=== PATIENT | male | born 1965 | race Two or more races ===

== ENCOUNTER 2018-10-08 07:25 | Day surgery (SDC) | payer BC ==
--- NOTE | 2018-10-03 12:58 | RAD REPORT ---
EXAM DESCRIPTION: RAD - Chest Pa And Lat (2 Views) - 10/03/2018 11:36 am CLINICAL HISTORY: Preop chest, soft tissue mass removal pending COMPARISON: None. TECHNIQUE: PA and lateral views of the chest were obtained. FINDINGS: The lungs are clear. Lung markings are not outside of normal range. Heart size is normal and central vasculature is within normal limits. No pleural effusion or pneumothorax seen. No acute bony finding noted. No aortic abnormality. IMPRESSION: No acute cardiopulmonary process.
--- NOTE | 2018-10-03 15:34 | EKG ---
Test Date: 2018-10-03 Test Time: 11:15:34 Navigation Officer: ANNABELLE MEASUREMENT RESULTS: Intervals: Rate: 56 WI: 154 QRSD: 88 QT: 418 QTc: 403 [place]: P: 32 WI: 154 QRS: 61 T: 50 INTERPRETIVE STATEMENTS: Sinus bradycardia Otherwise normal ECG No previous ECG available for comparison Electronically Signed On 10-03-18 15:33:17 ADVERTISING REP by Kingsley Patiño
[2018-10-08] MEDS ORDERED: Ringers Lactate 1,000 ML IV ONE ×2 (08:06→10:20)
[2018-10-08] MEDS ORDERED: PROPOFOL 200 MG/20 ML VIAL IV ONE ×2 (08:13→10:10)
[2018-10-08] MEDS ORDERED: FENTANYL CITR 100 MCG/2 ML ONE (08:13)
[2018-10-08] MEDS ORDERED: MIDAZOLAM HCL 2 MG/2 ML INJ ONE (08:14)
[2018-10-08] MEDS ORDERED: LIDOCAINE 2% MPF 5 ML VIAL ONE (08:14)
[2018-10-08] MEDS ORDERED: ONDANSETRON 4 MG/2 ML VIAL ONE ×2 (08:16→09:01)
[2018-10-08] MEDS ORDERED: CEFAZOLIN 1GM (PREMIX IV) 1 GM/50 ML BAG ONE (08:51)
[2018-10-08] MEDS ORDERED: KETOROLAC 30 MG/ML INJ ONE (09:16)
--- NOTE | 2018-10-08 09:21 | P.BOP ---
Preoperative diagnosis: right groin (suprapubic ) hyperpimentated ulcerated mass , left thigh mass Postoperative diagnosis: same Primary procedure: 1. Wide excision of R groin hyperpimentated ulcerated subq mass 3x3cm Secondary procedure: 2. Wide excision left thigh subq mass 1.5 x 1.5 cm Estimated blood loss: <10 Anesthesia: General Complications: None Transferred to: Recovery Room Condition: Good
--- NOTE | 2018-10-09 01:38 | DS ---
Date of Discharge: 10/08/2018 Diagnoses: Right groin basal carcinoma, left thigh subcutaneous mass. Home Activity: As tolerated. No heavy lifting. Followup: Follow up in my office in 1 week. Call for appointment [phone]. Keep area dry for 48 ho urs, then may shower. May take shower 2 days from now and replace the dressings with just Neosporin and sterile dressings. Medications: See orders. AI/CONNIE Voice ID: [id number] Report ID: [id number]
--- NOTE | 2018-10-09 01:38 | OP ---
Date of Procedure: 10/08/2018 Surgeon: Andre Irwin MD Diagnosis: Right groin suprapubic hyperpigmented ulcerated mass on the left side mass. Procedures: 1.Wide excision of right groin ulcerated basal cell carcinoma with a subcutaneous induration 3 x 3 c m. 2.Excision of left thigh subcutaneous mass 1.5 x 1.5 cm. Anesthesia: General plus local. Findings: The patient has an ulcerated mass in the right groin and left side. The right groin, Dr. Upton, on frozen section salvage there is a basal carcinoma. On the left side, he still need to wa it for the permanent sections. Ebl: Less than 10 cc. Both masses have margins negative. Indications: This is the case of a male, who comes to us with those 2 problems mentioned above. Hardeep efits, alternatives, and risks of wide excision with frozen section fully explained to the patient, w hich include, not limited to infection, bleeding, damage to adjacent structures, anesthesia complicat ion, recurrence, IA, and even . He also understands this may not relieve any symptoms. He migh t need more than one surgical intervention. He understood, signed a consent. Areas of concern were marked by me and the patient in the holding room. Description Of Procedure: The patient was brought to the operating room, placed in supine position. Anesthesia was done without complication. Suprapubic area and left thigh were prepped and draped in a sterile fashion. Each side was prepped individually with different instruments to avoid cross con tamination. We proceeded to go to the right groin region first. Incision was carried down to subcut aneous tissue since this mass goes into the subcutaneous tissue. Mass was excised and this was close d after irrigation and suction with a 0 chromic and nylon. The pathology in that area shows basal ce ll carcinoma with wide negative margins. Once again, we moved to the left side. In that case, once again, we have different instruments with different setup and glove to avoid cross contamination. We made a wedge incision also, taken all the way down to subcutaneous tissue. This mass about 1.5 x 1. 5 cm. Removed it out with gross negative margins and also frozen section shows gross negative margin s, but the final diagnosis will be given once we have permanent section by Dr. Upton. That area wa s also closed with chromic and nylon on second area. The patient tolerated each procedure well. Hem ostasis and local anesthetic was done before closure. The patient covered with sterile dressings. T he patient was sent to recovery in stable condition. Sponge count and instrument counts were correct . AI/CONNIE Voice ID: [id number] Report ID: [id number]
== END 2018-10-08 11:36 | disposition home or self-care (01) ==
LOC: OR 07:25
PROVIDERS: ATTEND Surgery
PROC: 0JBM3ZZ Excision of Left Upper Leg Subcutaneous Tissue and Fascia, Percutaneous Approach (ICD-10-PCS; 2018-10-08)
PROC: 0JB83ZZ Excision of Abdomen Subcutaneous Tissue and Fascia, Percutaneous Approach (ICD-10-PCS; principal; 2018-10-08 08:30)
DX: C44.519 Basal cell carcinoma of skin of other part of trunk (principal); D23.72 Other benign neoplasm of skin of left lower limb, including hip
CPT/HCPCS: 71046; 88305; 88331; 88332; 93005; J0690; J2250; J2405; J2704; J3010

== ENCOUNTER 2020-12-14 13:06 | Inpatient (IN) | payer BC ==
--- NOTE | 2020-12-14 14:43 | RAD REPORT ---
EXAM DESCRIPTION: RAD - Chest Single View - 12/14/2020 2:32 pm CLINICAL HISTORY: DYSPNEA Chest pain. COMPARISON: Chest Pa And Lat (2 Views) dated 10/03/2018 FINDINGS: Portable technique limits examination quality. The lungs are grossly clear. The heart is normal in size. No displaced fractures. IMPRESSION: No acute intrathoracic process suspected.
[2020-12-14 14:51] LABS: Absolute Lymphocytes (CBC) 4.4 K/uL (0.7-4.9); Hematocrit 15.7 % (39.6-49.0); MPV 10.4 fL (7.6-11.3); RBC Red Blood Cell Count 1.71 M/uL (4.33-5.43)
[2020-12-14 14:52] LABS: Protime INR 1.42
[2020-12-14 15:10] LABS: ALT/SGPT 24 U/L (12-78); AST/SGOT 33 U/L (15-37); Albumin 2.4 g/dL (3.4-5.0); Alkaline Phosphatase 78 U/L (45-117); BUN Blood Urea Nitrogen 17 mg/dL (7-18); Bicarbonate 22 mmol/L (21-32); Bilirubin Direct 0.1 mg/dL (0-0.2); Bilirubin Total 0.4 mg/dL (0.2-1.0); Glucose Level 151 mg/dL (74-106); Magnesium 2.8 mg/dL (1.8-2.4); NT PRO-BNP 384 pg/mL (<125); Potassium 3.7 mmol/L (3.5-5.1); Protein, Total 8.8 g/dL (6.4-8.2); Sodium Level 135 mmol/L (136-145); Troponin (Emerg Dept Use Only) < 0.02 ng/mL (0.0-0.045)
[2020-12-14 15:33] LABS: Blood Morphology Comment NOTED (NOT SEEN); Hypochromasia 1+; Platelet Estimate DECR
--- NOTE | 2020-12-14 15:39 | RAD REPORT ---
EXAM DESCRIPTION: CT - Soft Tissue Neck W/Contr CLINICAL HISTORY: Pain;Swelling COMPARISON: Chest Abdomen Pelvis W Cont dated 12/14/[address] scans are performed using dose optimization technique as appropriate and may includ e automated exposure control or mA/KV adjustment according to patient size. FINDINGS: There is significant lymphadenopathy in the neck bilaterally, greater on the right. In the rib right submandibular region are multiple enlarged lymph nodes containing subtle areas internal ne crosis. The largest conglomerate of nodes in the right submandibular region measures 4.1 x 1.9 cm. Ju gular chain right-sided lymphadenopathy is noted measuring 15 mm in short axis anterior to right jugu lar vein 14 mm in short axis posterior to the right jugular vein. Submental lymphadenopathy is present on the right measuring 12 mm in AP dimension and anteriorly nikko uring 11 mm. On the left, there is submandibular lymphadenopathy present in totality measuring approximately 3.8 x 1.9 cm. Jugular chain lymphadenopathy is also present on the left, largest measuring 15 mm in short axis. The adenopathy extends along both posterior triangles as well as the base of the neck bilateral ly. The thyroid gland is normal size. Mild asymmetry is seen involving the right vocal cord. No pathologi c fluid collections. IMPRESSION: Extensive lymphadenopathy is present throughout the neck, greater on the right as detail ed in the submandibular region. Findings are highly suspicious for neoplastic process such as metasta tic disease or lymphoma.
--- NOTE | 2020-12-14 15:46 | RAD REPORT ---
EXAM DESCRIPTION: CT - Chest Abdomen Pelvis W Cont - 12/14/2020 3:15 pm CLINICAL HISTORY: Chest and abdomen pain. anemia, swelling, GI bleed COMPARISON: No comparisons TECHNIQUE: Approximately 100 mL nonionic IV contrast was administered to the patient. All CT scans are performed using dose optimization technique as appropriate and may include automated exposure control or mA/KV adjustment according to patient size. FINDINGS: Mild lymphadenopathy is detected along the base of the neck bilaterally. Moderate lymphade nopathy also present and the left axillary region, largest measuring 13 mm in short axis. A small somewhat poorly marginated spiculated pulmonary nodule is seen in the left upper lobe measuri ng 8 mm (image 13/87). Additional pulmonary nodule seen in the left upper lobe measuring 6 mm (image 18/87). 17 x 14 mm pulmonary nodule is present in the left lower lobe (image 32/82). 5 mm and 8 mm no dules are present in the right lower lobe (image 32/87). Vague hypodense liver lesions are present which is somewhat ill-defined, in the right lobe anteriorly measuring 9 mm in right lower lobe measuring 15 mm and in the anterior right lobe measuring 15 mm. The spleen, pancreas, adrenal glands and kidneys are within normal limits. Several mildly prominent lymph nodes are seen in the small bowel mesentery, largest measuring 11 mm. Lymphadenopathy is also identified in the right lower quadrant, largest measuring 18 mm. Left inguina l lymphadenopathy is present measuring 12 mm. Irregular thickening of the wall of the cecum is detected, incompletely assessed. No free air, bowel obstruction, free fluid or abscess. No lytic or blastic bone lesion. IMPRESSION: Findings suspicious for underlying neoplastic process are present, including lymphadenop athy, poorly defined hypodense liver lesions, and multiple pulmonary nodules bilaterally.A definitive primary neoplastic lesion is not identified with certainty on this study. There is suspicious nodula r irregular thickening in the region of the cecum, for which follow-up colonoscopy would be recommend ed.
--- NOTE | 2020-12-14 17:50 | EDPHYS ---
Physician Documentation [facility] Name: Niles Beltre Age: 55 yrs Sex: Male : 1965 Arrival Date: 12/14/2020 Time: 13:16 Bed 14 Private MD: Peter Morgan B ED Physician John Tavarez HPI: 12/14 14:08 This 55 yrs old Male presents to ER via Ambulatory with complaints of Jaw swelling. jr8 14:08 Patient stated that he has been having sinus congestion and generally not feeling well jr8 for over 5 weeks. Has been seen by PCP and given Abx without relief and then steroids with only mild relief. Last week started to have right sided jaw swelling and black stools. Feels much more fatigued and is having exertional shortness of breath. Last night had fevers as well. Severity of symptoms: At their worst the symptoms were moderate in the emergency department the symptoms are unchanged. The patient has not experienced similar symptoms in the past. The patient has been recently seen by a physician:. Historical: - Allergies: 13:39 Amoxicillin; mg2 13:39 Augmentin; mg2 - Immunization history:: Adult Immunizations up to date. - Social history:: Smoking status: Patient denies any tobacco usage or history of. ROS: 14:08 Constitutional: Positive for fatigue, fever. jr8 14:08 ENT: Positive for sinus congestion. 14:08 Neck: Positive for swelling, tenderness. 14:08 Respiratory: Positive for shortness of breath. 14:08 Abdomen/GI: Positive for nausea, black/tarry stool, Negative for abdominal pain, vomiting, diarrhea, abdominal distension. 14:08 Neuro: Positive for headache. 14:08 All other systems are negative. Exam: 14:08 Head/Face: Normocephalic, atraumatic. Chest/axilla: Normal chest wall appearance and jr8 motion. Nontender with no deformity. No lesions are appreciated. Cardiovascular: Regular rate and rhythm with a normal S1 and S2. No gallops, murmurs, or rubs. Normal PMI, no JVD. No pulse deficits. Respiratory: Lungs have equal breath sounds bilaterally, clear to auscultation and percussion. No rales, rhonchi or wheezes noted. No increased work of breathing, no retractions or nasal flaring. Abdomen/GI: Soft, non-tender, with normal bowel sounds. No distension or tympany. No guarding or rebound. No evidence of tenderness throughout. Back: No spinal tenderness. No costovertebral tenderness. Full range of motion. MS/ Extremity: Pulses equal, no cyanosis. Neurovascular intact. Full, normal range of motion. Neuro: Awake and alert, GCS 15, oriented to person, place, time, and situation. Cranial nerves II-XII grossly intact. Motor strength 5/5 in all extremities. Sensory grossly intact. Cerebellar exam normal. Normal gait. 14:08 ENT: Nares patent. No nasal discharge, no septal abnormalities noted. Tympanic membranes are normal and external auditory canals are clear. Oropharynx with no redness, swelling, or masses, exudates, or evidence of obstruction, uvula midline. Mucous membranes dry. Gums and lips pale 14:08 Eyes: Periorbital structures: appear normal, Pupils: equal, round, and reactive to light and accomodation, Extraocular movements: intact throughout, Conjunctiva: pale. 14:08 Neck: External neck: swelling, that is moderate, of the right submandibular area, tenderness, that is mild, Thyroid: appears normal, Trachea: is midline with no obvious abnormalities, ROM/movement: is normal. 14:08 Skin: Appearance: Color: pale. Vital Signs: 13:37 BP 104 / 70; Pulse 94; Resp 18; Pulse Ox 100% on R/A; Weight 64.41 kg; Height 5 ft. 2 mg2 in. (157.48 cm); Pain 9/10; 13:49 Temp 97.1; zb 15:46 BP 97 / 64; Pulse 82; Resp 16; Pulse Ox 98% on R/A; zb 17:10 BP 113 / 76; Pulse 83; Resp 16; Pulse Ox 98% on R/A; zb 18:00 BP 111 / 78; Pulse 88; Resp 16; Pulse Ox 98% on R/A; zb 19:00 BP 109 / 75; Pulse 87; Resp 16; Pulse Ox 97% on R/A; zb 20:00 BP 104 / 68; Pulse 87; Resp 17; Temp 98.7; Pulse Ox 100% on R/A; zb 21:00 BP 106 / 70; Pulse 92; Resp 18; Temp 98.5; Pulse Ox 100% on R/A; zb 21:45 BP 104 / 66; Pulse 79; Resp 18; Temp 97.9; Pulse Ox 100% on R/A; zb 13:37 Body Mass Index 25.97 (64.41 kg, 157.48 cm) mg2 MDM: 13:37 Patient medically screened. jr8 17:14 Data reviewed: vital signs, nurses notes, lab test result(s), EKG, radiologic studies, jr CT scan, plain films. Data interpreted: Pulse oximetry: on room air is 98 %. Interpretation: normal. Counseling: I had a detailed discussion with the patient and/or guardian regarding: the historical points, exam findings, and any diagnostic results supporting the discharge/admit diagnosis, lab results, radiology results, the need to transfer to another facility, [facility] does not immediately have the required specialist. 17:46 ED course: At this time we are unable to transfer out due to weather conditions. Will jr8 admit to hospital medicine. Dr. Guevara has been called as well for consult and instructions. Will get his hemoglobin to at least 8 and keep platelet to at least 20. Will be put on fluconazole, valtrex, and levaquin daily . 12/14 13:52 Order name: Basic Metabolic Panel; Complete Time: 15:24 8 12/14 13:52 Order name: CBC with Diff 12/14 13:52 Order name: LFT's; Complete Time: 15:24 jr8 12/14 13:52 Order name: Magnesium; Complete Time: 15:24 jr8 12/14 13:52 Order name: NT PRO-BNP; Complete Time: 15:24 jr8 12/14 13:52 Order name: PT-INR; Complete Time: 15:00 8 12/14 13:52 Order name: Troponin (emerg Dept Use Only); Complete Time: 15:24 jr8 12/14 13:52 Order name: TS jr 12/14 15:32 Order name: Manual Differential EDDE 12/14 15:59 Order name: Bb Add On bd 12/14 16:03 Order name: Packed RBC Leukored EDDE 12/14 17:00 Order name: ABO/RH no charge; Complete Time: 17:06 EDMS 12/14 20:01 Order name: SARS-COV-2 RT PCR; Complete Time: 20:04 EDDE 12/14 13:52 Order name: XRAY Chest (1 view); Complete Time: 14:44 12/14 13:52 Order name: EKG; Complete Time: 13:53 12/14 13:52 Order name: Cardiac monitoring; Complete Time: 14:56 12/14 13:52 Order name: EKG - Nurse/Tech; Complete Time: 14:55 [facility] [place] 12/14 13:52 Order name: IV Saline Lock; Complete Time: 14:55 12/14 13:52 Order name: Labs collected and sent; Complete Time: 14:55 12/14 13:52 Order name: O2 Per Protocol; Complete Time: 14:55 [facility] [place] 12/14 13:52 Order name: O2 Sat Monitoring; Complete Time: 14:55 [facility] [place] 12/14 13:53 Order name: CT Soft Tissue Neck W/contr; Complete Time: 15:42 [facility] [place] 12/14 13:53 Order name: CT Chest, Abdomen, Pelvis - W/Contrast; Complete Time: 16:07 [facility] [place] 12/14 21:21 Order name: CREATININE WHOLE BLOOD; Complete Time: 21:24 [facility] 12/14 16:11 Order name: Labs - recollect needed: collect abo/rh no charge; Complete Time: 16:47 bd Administered Medications: 17:59 Drug: Fluconazole 200 mg Route: PO; zb 18:44 Follow up: Response: No adverse reaction zb 17:59 Drug: LevaQUIN 500 mg Route: PO; zb 18:44 Follow up: Response: No adverse reaction zb 21:48 Follow up: Response: No adverse reaction zb 18:44 Drug: valACYclovir 500 mg Route: PO; zb 18:45 Follow up: Response: No adverse reaction zb 21:49 Follow up: Response: No adverse reaction zb 19:45 Drug: Tylenol 650 mg Route: PO; zb 21:49 Follow up: Response: No adverse reaction zb 19:45 Drug: Benadryl 12.5 mg Route: IVP; Site: right antecubital; zb 21:49 Follow up: Response: No adverse reaction zb Disposition: 12/14/20 17:49 Hospitalization ordered by Victorino Schrader for Inpatient Admission. Preliminary diagnosis are Acute Anemia, Thrombocytopenia, unspecified, Acute myelomonocytic leukemia. - Bed requested for Telemetry/MedSurg (Inpatient). - Status is Inpatient Admission. zb - Condition is Fair. - Problem is new. - Symptoms are unchanged. Addendum: 12/18/2020 19:26 Co-signature as Attending Physician, John Tavarez MD I agree with the assessment and t w4 plan of care. Signatures: Dispatcher [employer] [facility] Marlene Quick Diana, RN RN dw Markell Nation, ELIOT PA jr8 John Tavarez MD MD tw4 Hugo Aguilar, MIRA MEYERS [facility] Karina Loomis RN RN zb Corrections: (The following items were deleted from the chart) 12/14 19:15 17:01 CORONAVIRUS+MR.LAB.BRZ ordered. [facility] 20:24 17:49 Hospitalization Ordered by Victorino Schrader DO for Inpatient Admission. Preliminary diagnosis is Acute Anemia; Thrombocytopenia, unspecified; Acute myelomonocytic leukemia. Bed requested for Telemetry/MedSurg (Inpatient). Status is Inpatient Admission. Condition is Fair. Problem is new. Symptoms are unchanged. jr8 22:24 20:24 12/14/2020 17:49 Hospitalization Ordered by Victorino Schrader DO for Inpatient zb Admission. Preliminary diagnosis is Acute Anemia; Thrombocytopenia, unspecified; Acute myelomonocytic leukemia. Bed requested for Telemetry/MedSurg (Inpatient). Status is Inpatient Admission. Condition is Fair. Problem is new. Symptoms are unchanged. dw
--- NOTE | 2020-12-14 17:50 | ER ---
Nurse's Notes [facility] [place] Name: Niles Beltre Age: 55 yrs Sex: Male : 1965 Arrival Date: 12/14/2020 Time: 13:16 Bed 14 Private MD: Peter Morgan B Diagnosis: Acute Anemia;Thrombocytopenia, unspecified;Acute myelomonocytic leukemia Presentation: 12/14 13:37 Chief complaint: Patient states: Swelling to R jaw that began 1 week ago. Coronavirus mg2 screen: Client denies travel out of the [place] in the last 14 days. Ebola Screen: Patient denies exposure to infectious person. Patient denies travel to an Ebola-affected area in the 21 days before illness onset. Initial Sepsis Screen: Does the patient meet any 2 criteria? No. Patient's initial sepsis screen is negative. Does the patient have a suspected source of infection? No. Patient's initial sepsis screen is negative. Risk Assessment: Do you want to hurt yourself or someone else? Patient reports no desire to harm self or others. Onset of symptoms was December 07, 2020. 13:37 Method Of Arrival: Ambulatory mg2 13:37 Acuity: OSMANI 3 mg2 20:10 Acuity: OSMANI 2 zb Historical: - Allergies: 13:39 Amoxicillin; mg2 13:39 Augmentin; mg2 - Immunization history:: Adult Immunizations up to date. - Social history:: Smoking status: Patient denies any tobacco usage or history of. Screenin:49 Abuse screen: Denies threats or abuse. Denies injuries from another. Nutritional zb screening: No deficits noted. Tuberculosis screening: No symptoms or risk factors identified. Fall Risk None identified. Assessment: 13:48 Reassessment: ECP at bedside. zb 14:00 General: Appears in no apparent distress. uncomfortable, Behavior is calm, cooperative, zb appropriate for age, Reports fatigue for >3 days. Pain: Complains of pain in right submandibular area Pain does not radiate. Pain currently is 10 out of 10 on a pain scale. Quality of pain is described as aching, tender, Pain began 7 days ago. Neuro: Level of Consciousness is awake, alert, obeys commands. Cardiovascular: Capillary refill < 3 seconds Patient's skin is warm and dry. Respiratory: Airway is patent Respiratory effort is even, unlabored, Respiratory pattern is regular, symmetrical. GI: Abdomen is round. GI: Reports black stools since last Monday. : No signs and/or symptoms were reported regarding the genitourinary system. EENT: No signs and/or symptoms were reported regarding the EENT system. Derm: Skin is intact, is healthy with good turgor, Skin is dry, Skin is pale, Skin temperature is warm. Musculoskeletal: Range of motion: intact in all extremities, 15:01 Reassessment: CT notified patient is ready. zb 15:49 Reassessment: Patient appears in no apparent distress at this time. Patient and/or zb family updated on plan of care and expected duration. Pain level reassessed. Patient is alert, oriented x 3, equal unlabored respirations, skin warm/dry/pink. pt resting quietly. no changes at this time. 16:50 Reassessment: Patient appears in no apparent distress at this time. Patient and/or zb family updated on plan of care and expected duration. Pain level reassessed. Patient is alert, oriented x 3, equal unlabored respirations, skin warm/dry/pink. no changes at this time. patient consented for blood. 17:28 Reassessment: Patient appears in no apparent distress at this time. Patient and/or zb family updated on plan of care and expected duration. Pain level reassessed. Patient is alert, oriented x 3, equal unlabored respirations, skin warm/dry/pink. ECP at bedside at bedside. 18:28 Reassessment: hospitalist at bedside. zb 19:30 Reassessment: Patient appears in no apparent distress at this time. Patient and/or zb family updated on plan of care and expected duration. Pain level reassessed. Patient is alert, oriented x 3, equal unlabored respirations, skin warm/dry/pink. pt waiting transfusion. no c/o at this time. lying in bed. 20:30 Reassessment: Patient appears in no apparent distress at this time. Patient and/or zb family updated on plan of care and expected duration. Pain level reassessed. Patient is alert, oriented x 3, equal unlabored respirations, skin warm/dry/pink. IV blood infusing. 21:45 Reassessment: Patient appears in no apparent distress at this time. Patient and/or zb family updated on plan of care and expected duration. Pain level reassessed. Patient is alert, oriented x 3, equal unlabored respirations, skin warm/dry/pink. blood completed. Vital Signs: 13:37 BP 104 / 70; Pulse 94; Resp 18; Pulse Ox 100% on R/A; Weight 64.41 kg; Height 5 ft. 2 mg2 in. (157.48 cm); Pain 9/10; 13:49 Temp 97.1; zb 15:46 BP 97 / 64; Pulse 82; Resp 16; Pulse Ox 98% on R/A; zb 17:10 BP 113 / 76; Pulse 83; Resp 16; Pulse Ox 98% on R/A; zb 18:00 BP 111 / 78; Pulse 88; Resp 16; Pulse Ox 98% on R/A; zb 19:00 BP 109 / 75; Pulse 87; Resp 16; Pulse Ox 97% on R/A; zb 20:00 BP 104 / 68; Pulse 87; Resp 17; Temp 98.7; Pulse Ox 100% on R/A; zb 21:00 BP 106 / 70; Pulse 92; Resp 18; Temp 98.5; Pulse Ox 100% on R/A; zb 21:45 BP 104 / 66; Pulse 79; Resp 18; Temp 97.9; Pulse Ox 100% on R/A; zb 13:37 Body Mass Index 25.97 (64.41 kg, 157.48 cm) mg2 ED Course: 13:16 Patient arrived in ED. mr 13:16 Peter Morgan MD is Private Physician. mr 13:37 Markell Nation [facility] is [facility] jr8 13:37 John Tavarez MD is Attending Physician. jr8 13:38 Triage completed. mg2 13:39 Arm band placed on right wrist. mg2 13:48 Karina Loomis RN is Primary Nurse. zb 14:32 XRAY Chest (1 view) In Process Unspecified. EDMS 14:59 Patient has correct armband on for positive identification. Placed in gown. Bed in low zb position. Call light in reach. engine monitor on. Pulse ox on. NIBP on. Door closed. Noise minimized. Warm blanket given. 14:59 EKG done, by ED staff, reviewed by Markell MCCABE. Inserted saline lock: 18 gauge in zb right antecubital area, using aseptic technique. Blood collected. 15:15 CT Soft Tissue Neck W/contr In Process Unspecified. EDMS 15:15 CT Chest, Abdomen, Pelvis - W/Contrast In Process Unspecified. EDMS 16:59 initiated transfer to [facility]. bd 17:09 pt denied due to no capacity. Hospital suggested that we try again wed. Dr Juan M hill was dr consulted. 17:48 Victorino Schrader DO is Hospitalizing Provider. jr8 21:54 Patient admitted, IV remains in place. zb 21:54 No provider procedures requiring assistance completed. zb Administered Medications: 17:59 Drug: Fluconazole 200 mg Route: PO; zb 18:44 Follow up: Response: No adverse reaction zb 17:59 Drug: LevaQUIN 500 mg Route: PO; zb 18:44 Follow up: Response: No adverse reaction zb 21:48 Follow up: Response: No adverse reaction zb 18:44 Drug: valACYclovir 500 mg Route: PO; zb 18:45 Follow up: Response: No adverse reaction zb 21:49 Follow up: Response: No adverse reaction zb 19:45 Drug: Tylenol 650 mg Route: PO; zb 21:49 Follow up: Response: No adverse reaction zb 19:45 Drug: Benadryl 12.5 mg Route: IVP; Site: right antecubital; zb 21:49 Follow up: Response: No adverse reaction zb Outcome: 17:49 Decision to Hospitalize by Provider. jr8 21:53 Admitted to Med/surg accompanied by tech, via wheelchair, room 220, with chart, Report zb called to MIRA Cosby 21:53 Condition: stable 21:53 Instructed on the need for admit, Demonstrated understanding of instructions. 22:24 Patient left the ED. zb Signatures: Dispatcher [employer] EDMS Marlene QuickaMarla mr Chapis, Markell, ELIOT PA jr8 Hugo Aguilar RN RN mg2 Brown, Zipporah, RN RN zb Corrections: (The following items were deleted from the chart) 15:05 14:00 Pain: Denies pain. zb zb
[2020-12-14] MEDS ORDERED: levoFLOXacin 250 MG TAB ONE (18:11)
[2020-12-14] MEDS ORDERED: FLUCONAZOLE 100 MG TAB ONE (18:11)
[2020-12-14] MEDS ORDERED: VALACYCLOVIR 500 MG TAB PO SCH (19:00)
[2020-12-14] MEDS ORDERED: NA CHLORIDE 0.9% 250 ML ONE (19:50)
[2020-12-14] MEDS ORDERED: ACETAMINOPHEN 325 MG TABLET ONE (19:57)
[2020-12-14] MEDS ORDERED: DIPHENHYDRAMINE 50 MG/ML VIAL ONE (19:57)
[2020-12-14] MEDS ORDERED: ONDANSETRON 4 MG/2 ML VIAL IV PRN (22:08)
[2020-12-14] MEDS ORDERED: MELATONIN 5 MG TABLET PO PRN (22:08)
[2020-12-14] MEDS: NA CHLORIDE 0.9% 1,000 ML IV SCH (22:08)
[2020-12-14] MEDS ORDERED: SODIUM CHLORIDE 0.9% 10ML INJ IV PRN (22:08)
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
[2020-12-14 23:32] LABS: Ferritin 2934.1 ng/mL (26-388)
[2020-12-15 00:55] VITALS: BMI 24.7
[2020-12-15] MEDS: NA CHLORIDE 0.9% 1,000 ML IV SCH ×2 (03:20→08:08)
[2020-12-15 05:23] LABS: Protime INR 1.41
[2020-12-15 05:30] LABS: MPV 11.2 fL (7.6-11.3); RBC Red Blood Cell Count 2.49 M/uL (4.33-5.43)
[2020-12-15 05:53] LABS: Bilirubin Total 0.5 mg/dL (0.2-1.0); Magnesium 2.7 mg/dL (1.8-2.4); Potassium 3.6 mmol/L (3.5-5.1); Protein, Total 7.2 g/dL (6.4-8.2)
[2020-12-15 05:56] LABS: Blood Morphology Comment NOT SEEN (NOT SEEN); Platelet Estimate DECR
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
[2020-12-15] MEDS ORDERED: POTASSIUM CL SA 10 MEQ TAB PO ONE (09:00)
[2020-12-15] MEDS: VALACYCLOVIR 500 MG TAB PO SCH ×3 (09:00→21:56)
[2020-12-15] MEDS: HYDROCODONE/APAP 5/325 MG TAB PO PRN ×2 (09:04→21:58)
[2020-12-15] MEDS: FLUCONAZOLE 100 MG TAB PO SCH (09:06)
[2020-12-15] MEDS: levoFLOXacin 500 MG TAB PO SCH (09:14)
[2020-12-15] MEDS: PANTOPRAZOLE 40 MG INJ IVP SCH (09:14)
[2020-12-15 14:26] LABS: Hematocrit 26.8 % (39.6-49.0)
[2020-12-15 14:55] VITALS: O2SAT 99
[2020-12-16] MEDS: NA CHLORIDE 0.9% 1,000 ML IV SCH ×3 (00:17→23:12)
[2020-12-16 04:41] LABS: Absolute Lymphocytes (CBC) 2.6 K/uL (0.7-4.9); MPV 8.9 fL (7.6-11.3); RBC Red Blood Cell Count 2.87 M/uL (4.33-5.43)
[2020-12-16 05:01] LABS: ALT/SGPT 18 U/L (12-78); AST/SGOT 21 U/L (15-37); Albumin 1.9 g/dL (3.4-5.0); Alkaline Phosphatase 70 U/L (45-117); BUN Blood Urea Nitrogen 11 mg/dL (7-18); Bicarbonate 24 mmol/L (21-32); Bilirubin Total 0.4 mg/dL (0.2-1.0); Glucose Level 101 mg/dL (74-106); Magnesium 2.3 mg/dL (1.8-2.4); Potassium 3.7 mmol/L (3.5-5.1); Protein, Total 7.1 g/dL (6.4-8.2); Sodium Level 140 mmol/L (136-145)
[2020-12-16] MEDS: PANTOPRAZOLE 40 MG INJ IVP SCH (09:00)
[2020-12-16] MEDS: VALACYCLOVIR 500 MG TAB PO SCH (09:00)
[2020-12-16] MEDS ORDERED: POTASSIUM 25 MEQ EFFERV TAB PO ONE (09:00)
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
[2020-12-16] MEDS: levoFLOXacin 500 MG TAB PO SCH (10:07)
[2020-12-16] MEDS: FLUCONAZOLE 100 MG TAB PO SCH (10:07)
[2020-12-16] MEDS: ACETAMINOPHEN 500 MG TAB PO PRN (10:13)
[2020-12-16 12:39] LABS: MPV 8.6 fL (7.6-11.3)
[2020-12-16 13:11] LABS: Platelet Estimate DECR
[2020-12-16] MEDS: HYDROCODONE/APAP 5/325 MG TAB PO PRN (21:32)
[2020-12-17] MEDS: NA CHLORIDE 0.9% 1,000 ML IV SCH (00:08)
[2020-12-17 06:38] LABS: Absolute Lymphocytes (CBC) 4.4 K/uL (0.7-4.9); Hematocrit 27.2 % (39.6-49.0); MPV 8.8 fL (7.6-11.3); RBC Red Blood Cell Count 3.04 M/uL (4.33-5.43)
[2020-12-17 06:50] LABS: ALT/SGPT 25 U/L (12-78); AST/SGOT 31 U/L (15-37); Alkaline Phosphatase 74 U/L (45-117); BUN Blood Urea Nitrogen 11 mg/dL (7-18); Bicarbonate 24 mmol/L (21-32); Bilirubin Total 0.3 mg/dL (0.2-1.0); Glucose Level 82 mg/dL (74-106); Magnesium 2.4 mg/dL (1.8-2.4); Potassium 3.6 mmol/L (3.5-5.1); Protein, Total 7.4 g/dL (6.4-8.2); Sodium Level 139 mmol/L (136-145)
[2020-12-17 08:22] LABS: Blood Morphology Comment NOT SEEN (NOT SEEN); Platelet Estimate DECR
[2020-12-17] MEDS: levoFLOXacin 500 MG TAB PO SCH (08:33)
[2020-12-17] MEDS: FLUCONAZOLE 100 MG TAB PO SCH (08:33)
[2020-12-17] MEDS: HYDROCODONE/APAP 5/325 MG TAB PO PRN (08:34)
[2020-12-17] MEDS: PANTOPRAZOLE 40 MG INJ IVP SCH (08:35)
[2020-12-17] MEDS ORDERED: VALACYCLOVIR 500 MG TAB PO SCH (09:00)
[2020-12-17] MEDS ORDERED: MORPHINE 2 MG/ML SYR IV PRN (09:06)
[2020-12-17] MEDS ORDERED: TRAMADOL HCL 50 MG TAB PO PRN (09:06)
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
[2020-12-17] MEDS ORDERED: allopurinoL 300 MG TAB PO SCH (12:15)
[2020-12-17] MEDS: HYDROCODONE/APAP 7.5/325 MG TAB PO PRN ×2 (13:08→18:46)
[2020-12-17] MEDS: ACETAMINOPHEN 500 MG TAB PO PRN (18:46)
[2020-12-17 20:55] VITALS: TEMP 98
[2020-12-17 22:01] VITALS: BP 110/74
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
== END 2020-12-17 22:49 | disposition short-term general hospital (02) | DRG 835 ==
LOC: ER 13:06 → ERHOLD 19:41 → 2ND 21:34
PROVIDERS: ADMIT Family Medicine; ATTEND Family Medicine
PROC: 30233N1 Transfusion of Nonautologous Red Blood Cells into Peripheral Vein, Percutaneous Approach (ICD-10-PCS; 2020-12-14)
PROC: 30233R1 Transfusion of Nonautologous Platelets into Peripheral Vein, Percutaneous Approach (ICD-10-PCS; principal; 2020-12-15)
DX: C92.00 Acute myeloblastic leukemia, not having achieved remission (principal); D61.818 Other pancytopenia; K76.9 Liver disease, unspecified; R59.1 Generalized enlarged lymph nodes; Z88.1 Allergy status to other antibiotic agents; Z79.899 Other long term (current) drug therapy; Z20.822 Contact with and (suspected) exposure to COVID-19
CPT/HCPCS: 36415; 36430; 70491; 71045; 71260; 74177; 80048; 80053; 80076; 82565; 82728; 83540; 83735; 83880; 84466; 84484; 85014; 85018; 85025; 85049; 85610; 86850; 86900; 86901; 96374; 99285; C9113; J1200; J7030; J7050; P9016; P9035; Q9967; U0003